=== PATIENT | male | born 1990 | race African-American/Black ===

== ENCOUNTER 2019-03-20 02:22 | Emergency (ER) | payer OTHER ==
[2019-03-20 02:45] VITALS: BP 142/84; PULSE 89; TEMP 98.1; BMI 24.3
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
== END 2019-03-20 03:30 | disposition home or self-care (01) ==
LOC: JER 02:22
DX: Z77.21 Contact with and (suspected) exposure to potentially hazardous body fluids (principal); Y35.891A Legal intervention involving other specified means, law enforcement official injured, initial encounter; Y93.89 Activity, other specified; Y92.89 Other specified places as the place of occurrence of the external cause; Y99.0 Civilian activity done for income or pay
CPT/HCPCS: 99282-25